=== PATIENT | male | born 1955 | race Caucasian/White ===

== ENCOUNTER → 2024-01-05 06:15 | Day surgery (SDC) | payer MEDICARE, SELFPAY | LOC: GI 06:15 | PROVIDERS: ATTENDING PHYSICIAN Internal Medicine Gastroenterology | DX: Z12.11 Encounter for screening for malignant neoplasm of colon (principal); Z86.0100 Personal history of colon polyps, unspecified; K62.6 Ulcer of anus and rectum; K64.8 Other hemorrhoids; K62.1 Rectal polyp | CPT/HCPCS: 45380; 88305 ==

== ENCOUNTER 2024-01-26 10:02 | Emergency (ER) | payer MEDICARE, SELFPAY ==
[2024-01-26 10:06] VITALS: BP 170/100
[2024-01-26 10:46] VITALS: BP 178/98
--- NOTE | 2024-01-26 10:51 | ED.GENMED ---
History of Present Illness
General
Chief Complaint: Headache
Source: patient
Exam Limitations: none
Time Seen by Provider: 01/26/24 10:26
Nursing documentation reviewed up to this point in time: agreed with
History of Present Illness
History of Present Illness:
68-year-old male past medical history of hyperlipidemia retinal issues presenting to the emergency department today with concerns of blurred vision that started while in his home this morning there is that this would improve when covering either
eye. Also has had ongoing headache to the left posterior portion of his head and into his neck over the past few days. Slightly worse with movement. Denies any numbness weakness chest pain shortness of breath.
Review of Systems
Review of Systems
Allergies reviewed?: Yes
All Other Systems: ROS reviewed and negative except as documented in HPI and ROS
Phy Exam
Physical Exam
Physical Exam:
GENERAL: Alert , in no apparent distress
EYE: pupils equal and reactive
NECK: Supple, no significant adenopathy.
ENT: o/p clr, mmm.
CARDIAC: Regular rate and rhythm .
LUNGS: Clear breath sounds bilaterally, no acute respiratory distress, no wheezes/rales/rhonchi
ABDOMEN: Soft, without focal tenderness, no r/g, no cvat
NEUROLOGICAL: Alert and oriented, no focal neuro deficits 5-5 upper and lower extremity strength normal sensation when palpating bilaterally normal finger-nose and heel fletcher no pronator drift
SKIN: Warm and dry, skin intact.
MUSCULOSKELETAL: No edema, well perfused.
PSYCH: Normal and appropriate interaction.
Course
Orders/Labs/Results
Orders:
Orders
01/26/24 10:40
CT Head & Neck Angio W/wo IV Urgent
Comment:
Reason For Exam: blurred vision left casing running machine tender neck pain
Cardiac Monitoring- Treatment ONCE
01/26/24 10:52
Complete Blood Count/With Diff Urgent
PTT Urgent
01/26/24 10:57
Electrocardiogram (*1) Urgent
Reason for Study: Fatigue / Weakness
EKG- Treatment ONCE
01/26/24 11:23
Comprehensive Metabolic Panel Urgent
Troponin I Urgent
Abnormal Lab Results
01/26/24 01/26/24
10:52 11:23
RBC 4.58 L 10^6/uL
(4.70-6.10)
MCH 31.9 H pg
(27.0-31.0)
ALT 55 H U/L
(0-50)
01/26/24 10:52
01/26/24 11:23
Vital Signs
Initial and Last Documented VS:
Initial Vital Signs
Temp Pulse Resp BP Pulse Ox
98.3 F 61 16 170/100 97
01/26/24 10:06 01/26/24 10:06 01/26/24 10:06 01/26/24 10:06 01/26/24 10:06
Last Documented Vital Signs
Temp Pulse Resp BP Pulse Ox
98.3 F 60 18 162/88 96
01/26/24 10:06 01/26/24 13:15 01/26/24 13:15 01/26/24 13:00 01/26/24 13:15
MDM/Problems Addressed
MDM/Problems Addressed:
68-year-old male presenting to the emergency department today with concerns of blurred vision starting roughly hour prior to improved with closing either eye. Also has noticed ongoing discomfort to the left posterior neck over the past few days.
Denies specific injuries. Denies additional neurologic symptoms remainder of the neurologic examination without acute abnormalities. no visual field deficits vision of 20/40 bilaterally and with each individual eye. Vital signs normal here other
than elevated blood pressure in the 160s over 80s. Labs unremarkable CT angiogram was performed without acute abnormalities. Patient claims symptoms fully resolving while here in the ER symptoms seem very unlikely consistent with central process
or strokelike process plan for close outpatient follow-up with ophthalmology otherwise stable for discharge return precautions given.
*Critical Care Note
Total Time (30-74mins, 75-104mins- exclusive of procedures): Not Applicable
ED Attending Note
-
Portions of this chart may have been created with voice recognition software.� Occasional wrong word or��sound alike� substitutions may have occurred due to the inherent limitations of voice recognition software.
Discharge Plan
Departure
Patient Disposition: Home (Routine Discharge)
Date of Disposition: 01/26/24
Time of Disposition: 15:36
Patient with high blood pressure during this ER visit?: No
Condition: Good
Covid-19: Not Applicable
Discharge Problem:
Blurred vision
Prescriptions:
No Action
multivitamin 1 EACH tablet
2 ea PO DAILY
aspirin 81 MG tablet,delayed release (DR/EC)
81 mg PO DAILY
fluoxetine 20 MG capsule
20 mg PO DAILY
ubidecarenone-omega 3-vit E 1 CAP capsule
1 cap PO DAILY
cholecalciferol (vitamin D3) 1,000 UNITS tablet
1,000 units PO DAILY
mesalamine 800 MG tablet,delayed release (DR/EC)
1,600 mg PO DAILY
L.acidoph, paracasei,B. lactis 1 EACH capsule
2 ea PO DAILY
cyanocobalamin (vitamin B-12) 2,500 MCG tablet
2,500 mcg PO DAILY
Super Beet Chew
2 tab PO DAILY
clonazepam 0.25 MG tablet,disintegrating
0.25 mg PO PRN PRN (Reason: sleep)
Referrals:
Lane Dockery Jr., [Family Provider] -
Activity Restrictions/Additional Instructions:
You came to the emergency department today with concerns of blurred vision. Here had a reassuring assessment. Please follow closely with the eye doctor in the next few days for reassessment. Return to the emergency department immediately for any
worsening or concerning symptoms.
Interventions
Interventions:
*Risk Screen - Suicide Last Done: 01/26/24 10:06
*General Assessment Last Done: 01/26/24 11:12
*Neglect/Abuse Screening Last Done: 01/26/24 10:06
ED- Fall Risk Assessment Last Done: 01/26/24 11:12
*ED COVID-19 Vaccine History Last Done: 01/26/24 11:12
ED- Neurological Assessment Last Done: 01/26/24 11:12
Discharge Date and Time
Print Language: PORTUGUESE
[2024-01-26 11:00] VITALS: BP 165/85
[2024-01-26 11:06] LABS: % Basophils 1.1 % (0-2); % Eosinophils 5.4 % (0-6); % Immature Granulocytes 0.4 % (0-0.5); % Monocytes 8.9 % (1.7-9.3); % Neutrophils 61.2 % (42.2-75.2); Absolute Basophils 0.1 10^3/uL (0-0.2); Absolute Eosinophils 0.3 10^3/uL (0-0.7); Absolute Lymphocytes 1.2 10^3/uL (1.2-3.4); Absolute Monocytes 0.5 10^3/uL (0.1-0.6); Absolute Neutrophils 3.3 10^3/uL (1.4-6.5); Hematocrit 42.1 % (39.0-52.0); Hemoglobin 14.6 g/dL (13.0-18.0); Mean Corp Hgb Conc. 34.7 g/dL (33.0-37.0); Mean Corpuscular Hgb 31.9 pg (27.0-31.0); Mean Corpuscular Volume 91.9 fL (80.0-94.0); Nucleated Red Blood Cells % 0 % (-); Platelet Count 174 10^3/uL (130-400); Red Blood Cell Count 4.58 10^6/uL (4.70-6.10); White Blood Cell Count 5.4 10^3/uL (4.8-10.8)
[2024-01-26 11:10] VITALS: BMI 31.4
[2024-01-26 11:53] LABS: ALT (SGPT) 55 U/L (0-50); AST (SGOT) 41 U/L (17-59); Albumin 4.7 g/dl (3.5-5.0); Alkaline Phosphatase 65 U/L (38-126); Blood Urea Nitrogen 20 mg/dl (9-20); Calcium 9.7 mg/dl (8.4-10.2); Carbon Dioxide 24 mmol/L (22-30); Chloride 106 mmol/L (98-107); Estimated Creatinine Clearance 98 ml/min; Glucose 94 mg/dl (70-99); Potassium 4.2 mmol/L (3.5-5.1); Sodium 142 mmol/L (135-145); Total Bilirubin 0.7 mg/dl (0.2-1.3); Total Protein 7.1 g/dl (6.3-8.2); eGFR > 60.00
[2024-01-26 12:00] VITALS: BP 153/96
[2024-01-26 12:00] LABS: Troponin I < 0.012 ng/ml
[2024-01-26 13:00] VITALS: BP 162/88
== END 2024-01-26 16:26 | disposition home or self-care (01) ==
LOC: EMR 10:02
PROVIDERS: Physician Assistant; EMERGENCY PHYSICIAN Emergency Medicine; FAMILY PHYSICIAN Family Medicine
DX: H53.8 Other visual disturbances (principal); E78.00 Pure hypercholesterolemia, unspecified
CPT/HCPCS: 99284; 70496; 70498; 80053; 84484; 85025; 85730; 93005; Q9967